=== PATIENT | female | born 1985 | race Two or more races ===

== ENCOUNTER 2016-11-23 16:44 | Emergency (ER) | payer OTHER ==
[~2016-11-23] VITALS: Ht 162.6 cm; Wt 96.0 kg
[2016-11-23] MEDS ORDERED: SODIUM CHLORIDE 0.9% 1,000 ML IV ONE (16:59)
[2016-11-23] MEDS ORDERED: MORPHINE SULFATE 4 MG/ML CPJ (NOT FOR IM USE) IV STA (16:59)
[2016-11-23] MEDS ORDERED: FAMOTIDINE 20MG/2ML VIAL IV STA (16:59)
[2016-11-23] MEDS ORDERED: ONDANSETRON HCL 4MG/2ML VIAL IV STA (16:59)
[2016-11-23 17:40] LABS: BASOPHILS % 0.6 % (0.0-2.0); EOSINOPHILS % 0.5 % (0.0-5.0); HEMATOCRIT. 42.5 % (36.0-48.0); HEMOGLOBIN. 14.1 g/dL (12.0-16.0); LYMPHOCYTES % 17.6 % (20.0-50.0); MEAN CORPUSCULAR HGB CONC 33.2 g/dL (31.0-37.0); MEAN CORPUSCULAR VOLUME 84.4 fL (81.0-99.0); MEAN PLATELET VOLUME 8.5 fl (7.4-10.4); MONOCYTES % 5.5 % (2.0-8.0); NEUTROPHILS % 75.8 % (40.0-76.0); PLATELET 363 x1000/uL (130-400); RED BLOOD CELL COUNT 5.03 mill/uL (4.2-5.4); RED CELL DISTRIBUTION WIDTH 14.1 % (11.6-14.6); WHITE BLOOD COUNT 15.7 x1000/uL (4.5-11.0)
[2016-11-23 17:45] LABS: CHLORIDE 102 mEq/L (98-107); INDEX HEMOLYSI 3 (1-3); INDEX ICTERIC 1 (1-4); INDEX LIPEMIC 1 (1-3)
[2016-11-23 17:47] LABS: ALBUMIN 3.5 g/dL (3.4-5.0); ANION GAP 15; CALCIUM 9.1 mg/dL (8.5-10.1); CARBON DIOXIDE 25 mEq/L (21-32); INR 1.1; LIPASE 114 IU/L (73-393); PROTHROMBIN TIME 11.4 sec; UREA NITROGEN BLOOD 11 mg/dL (7-21)
[2016-11-23 17:50] LABS: PARTIAL THROMBOPLASTIN TIME < 20.0 sec (24.0-34.0)
[2016-11-23 17:54] LABS: ALANINE AMINOTRANSFERASE 193 IU/L (13-61); CREATINE KINASE 108 IU/L (26-192); CREATINE KINASE MB FRACTION < 0.5 ng/mL (0.5-3.6); TROPONIN I < 0.02 ng/mL (0.00-0.04); eGFR > 60 mL/min (>60)
[2016-11-23 18:00] LABS: HCG SCREEN NEGATIVE
[2016-11-23] MEDS ORDERED: ASPIRIN 81MG TABLET PO ONE (18:30)
[2016-11-23 20:14] VITALS: BP 159/83
== END 2016-11-23 20:50 | disposition short-term general hospital (02) ==
LOC: ER 16:46
DX: R10.9 Unspecified abdominal pain (principal); R07.9 Chest pain, unspecified; R65.10 Systemic inflammatory response syndrome (SIRS) of non-infectious origin without acute organ dysfunction; E66.9 Obesity, unspecified; Z68.36 Body mass index [BMI] 36.0-36.9, adult; R79.89 Other specified abnormal findings of blood chemistry
CPT/HCPCS: 36415; 74022; 76705; 80053; 82550; 82553; 83690; 84484; 84703; 85025; 85610; 85730; 93005; 96374; 96375; 99285; J2405; J3490; J7030; Z7610; J2270